=== PATIENT | female | born 1990 | race African-American/Black ===

== ENCOUNTER 2021-11-04 15:26 | Inpatient (IN) | payer OTHER ==
[~2021-11-04] VITALS: Ht 157.5 cm; Wt 88.0 kg
[2021-11-04] VITALS (10 sets, daily range): BP systolic 117–143; BP diastolic 68–82
[2021-11-04] MEDS ORDERED: PRENTAB9 PO (15:54)
[2021-11-04] MEDS ORDERED: HOME MED LIST COMPLETE! XX SCH (15:55)
[2021-11-04] MEDS ORDERED: OXYTOCIN INJ 10 UNITS/ML VIAL (J2590) IV PRN (16:10)
[2021-11-04] MEDS ORDERED: TRANEXAMIC ACID INJection 1,000 MG in NS 100 ML IV PRN (16:10)
[2021-11-04] MEDS ORDERED: LR 1,000 ML IV SCH (16:10)
[2021-11-04] MEDS ORDERED: LACTATED RINGER'S 1000 ML IV ONE (16:10)
[2021-11-04] MEDS ORDERED: OXYTOCIN DRIP 30 UNITS in IV 1 EA IV PRN ×4 (16:10)
[2021-11-04] MEDS ORDERED: METHYLERGONOVINE MALEATE 0.2 MG/ML VIAL (J2210) IM PRN (16:10)
[2021-11-04 16:47] LABS: HEMATOCRIT 42.9 % (36.0-47.0); HEMOGLOBIN 14.1 g/dl (12.0-15.5); MEAN CORPUSCULAR HEMOGLOBIN 29.9 pg (27.0-33.0); MEAN CORPUSCULAR HGB CONC 32.9 g/dl (32.0-36.5); MEAN CORPUSCULAR VOLUME 90.9 fl (80.0-96.0); PLATELET COUNT, AUTOMATED 192 10^3/uL (150-450); RED BLOOD COUNT 4.72 10^6/uL (4.00-5.40); WHITE BLOOD COUNT 8.6 10^3/uL (4.0-10.0)
[2021-11-04] MEDS ORDERED: OXYTOCIN DRIP 30 UNITS in IV 1 EA IV SCH (19:10)
[2021-11-05] VITALS (42 sets, daily range): BP systolic 111–173; BP diastolic 58–95
[2021-11-05] MEDS ORDERED: FENTANYL 2MCG/ML ROPIVACAINE 0.2% IN 0.9% NACL 100ML IVBAG As Ordered ONE (01:59)
[2021-11-05] MEDS ORDERED: LR 500 ML IV PRN (05:10)
[2021-11-05] MEDS ORDERED: ONDANSETRON 4MG/2ML VIAL IV PRN (05:10)
[2021-11-05] MEDS ORDERED: NALOXONE INJ 0.4MG/1ML VIAL (J2310 PER 1MG) IV PRN (05:10)
[2021-11-05] MEDS ORDERED: diphenhydrAMINE 50MG/ML VIAL (J1200) IV PRN (05:10)
[2021-11-05] MEDS ORDERED: EPIDURAL/PCA KEYS XX PRN (05:10)
[2021-11-05] MEDS ORDERED: ePHEDrine SULFATE 25 MG/5 ML(5MG/ML) SYRINGE IVP PRN (05:10)
[2021-11-05] MEDS ORDERED: FENTANYL/ROPIVACAINE/NACL BAG 100 ML EPIDURAL SCH (05:10)
[2021-11-05 09:08] LABS: CORD GAS ABE V -1.4; CORD GAS HCO3 V 23.7 MEQ/L; CORD GAS PCO2 V 41.3 mmHg; CORD GAS PH V 7.377 UNITS; CORD GAS PO2 V 42.8 mmHg; CORD GAS SBC V 23.1 MEQ/L
[2021-11-05 09:09] LABS: CORD GAS ABE A -5.3; CORD GAS HCO3 A 23.2 MEQ/L; CORD GAS PH A 7.227 UNITS; CORD GAS SBC A 18.8 MEQ/L; CORD GAS TCO2 A 24.9 MEQ/L
[2021-11-05] MEDS ORDERED: ANUSOL HC CREAM 30GM TOP PRN (09:20)
[2021-11-05] MEDS ORDERED: OXYTOCIN INJ 10 UNITS/ML VIAL (J2590) IV ONE (09:20)
[2021-11-05] MEDS ORDERED: ACETAMINOPHEN TAB 650MG DOSE (2X325MG) PO PRN (09:20)
[2021-11-05] MEDS ORDERED: RHOGAM 300 MCG (1500 IU) INJ (J2790) IM SCH (09:20)
[2021-11-05] MEDS ORDERED: METHYLERGONOVINE MALEATE 0.2 MG TAB PO PRN (09:20)
[2021-11-05] MEDS ORDERED: DIBUCAINE 1% OINTMENT 30GM TOP PRN (09:20)
[2021-11-05] MEDS ORDERED: MOM 30ML SUSPENSION UDC PO PRN (09:20)
[2021-11-05] MEDS ORDERED: OXYTOCIN DRIP 30 UNITS in IV 1 EA IV SCH ×4 (09:20)
[2021-11-05] MEDS ORDERED: IBUPROFEN 600MG TAB PO PRN (09:20)
[2021-11-05] MEDS ORDERED: DOCUSATE SODIUM 100MG CAPSULE PO PRN (09:20)
[2021-11-05] MEDS: ACETAMINOPHEN 500 MG TAB PO PRN ×2 (10:46→16:42)
[2021-11-05 12:02] LABS: HEMATOCRIT 43.9 % (36.0-47.0); MEAN CORPUSCULAR HEMOGLOBIN 31.4 pg (27.0-33.0); MEAN CORPUSCULAR HGB CONC 34.2 g/dl (32.0-36.5); MEAN CORPUSCULAR VOLUME 91.8 fl (80.0-96.0); PLATELET COUNT, AUTOMATED 163 10^3/uL (150-450); RED BLOOD COUNT 4.78 10^6/uL (4.00-5.40)
[2021-11-05] MEDS: LR 1,000 ML IV SCH ×2 (12:24→14:42)
[2021-11-05 12:27] LABS: TOTAL PROTEIN,RANDOM URINE 34.5 MG/DL (0.0-12.0)
[2021-11-05 12:29] LABS: ALBUMIN 2.1 GM/DL (3.2-5.2); BILIRUBIN,DIRECT 0.2 MG/DL (0.0-0.2); BILIRUBIN,TOTAL 0.6 MG/DL (0.2-1.0)
[2021-11-06] MEDS: LR 1,000 ML IV SCH (01:20)
[2021-11-06 06:17] VITALS: BP 105/68
[2021-11-06 07:53] LABS: HEMATOCRIT 38.7 % (36.0-47.0); MEAN CORPUSCULAR HEMOGLOBIN 31.5 pg (27.0-33.0); MEAN CORPUSCULAR HGB CONC 33.6 g/dl (32.0-36.5); MEAN CORPUSCULAR VOLUME 93.7 fl (80.0-96.0); PLATELET COUNT, AUTOMATED 157 10^3/uL (150-450); RED BLOOD COUNT 4.13 10^6/uL (4.00-5.40); WHITE BLOOD COUNT 19.3 10^3/uL (4.0-10.0)
[2021-11-06] MEDS: PRENATAL VITAMINS CHEWABLE TABLET PO SCH (09:00)
[2021-11-06 18:00] VITALS: BP 129/71
[2021-11-07 06:00] VITALS: BP 140/84
[2021-11-07] MEDS: PRENATAL VITAMINS CHEWABLE TABLET PO SCH (08:18)
[2021-11-07] MEDS ORDERED: MEASLES,MUMPS,RUBELLA VACCINE INJ (MMR-II) (90707) SC ONE (09:00)
== END 2021-11-07 12:40 | disposition home or self-care (01) | DRG 807 ==
LOC: M LDI 15:26 → M OBS 11-05 13:29
PROVIDERS: ADMIT Obstetrics & Gynecology; ATTEND Obstetrics & Gynecology
PROC: 10E0XZZ Delivery of Products of Conception, External Approach (ICD-10-PCS; principal; 2021-11-05)
PROC: 0HQ9XZZ Repair Perineum Skin, External Approach (ICD-10-PCS; 2021-11-05)
DX: O77.0 Labor and delivery complicated by meconium in amniotic fluid (principal); Z37.0 Single live birth; Z3A.40 40 weeks gestation of pregnancy; O70.0 First degree perineal laceration during delivery; O75.89 Other specified complications of labor and delivery

== ENCOUNTER 2021-11-20 07:38 | Emergency (ER) | payer OTHER ==
[~2021-11-20 07:38] MED LIST: METHYLERGONOVINE MALEATE 0.2 MG TAB PO SCH; PRENTAB9 PO
[2021-11-20] MEDS ORDERED: NS 1,000 ML IV ONE ×2 (08:00→08:15)
[2021-11-20] MEDS ORDERED: OXYTOCIN INJ 10 UNITS/ML VIAL (J2590) IV ONE (08:15)
[2021-11-20 08:17] LABS: BASO # 0.1 10^3/uL (0.0-0.2); BASO % 0.7 % (0.0-1.0); EOS # 0.1 10^3/uL (0.0-0.5); HEMOGLOBIN 14.4 g/dl (12.0-15.5); LYMPH # 3.9 10^3/uL (1.5-5.0); LYMPH % 57.2 % (24.0-44.0); MEAN CORPUSCULAR HEMOGLOBIN 30.7 pg (27.0-33.0); MEAN CORPUSCULAR HGB CONC 33.5 g/dl (32.0-36.5); MEAN CORPUSCULAR VOLUME 91.7 fl (80.0-96.0); MONO # 0.5 10^3/uL (0.0-0.8); MONO % 7.3 % (2.0-8.0); NEUTROPHILS # 2.3 10^3/uL (1.5-8.5); NEUTROPHILS % 33.4 % (36.0-66.0); PLATELET COUNT, AUTOMATED 427 10^3/uL (150-450); RED BLOOD COUNT 4.69 10^6/uL (4.00-5.40); WHITE BLOOD COUNT 6.9 10^3/uL (4.0-10.0)
[2021-11-20] MEDS ORDERED: fentaNYL 100 MCG/2 ML INJECTION IV ONE (08:25)
[2021-11-20] MEDS ORDERED: METHYLERGONOVINE MALEATE 0.2 MG/ML VIAL (J2210) IM STA (08:29)
[2021-11-20 08:38] LABS: INR 1.05; PROTHROMBIN TIME 14.1 SECONDS (12.7-14.5)
[2021-11-20 08:40] LABS: PARTIAL THROMBOPLASTIN TIME 34.3 SECONDS (25.9-37.0)
[2021-11-20 08:56] LABS: RSV AMPLIFICATION NEGATIVE (NEGATIVE)
[2021-11-20 12:44] LABS: HEMATOCRIT 39.2 % (36.0-47.0)
[2021-11-20 14:30] VITALS: BP 123/81
[2021-11-20] MEDS ORDERED: METHYLERGONOVINE MALEATE 0.2 MG TAB PO ONE (14:35)
== END 2021-11-20 15:09 | disposition home or self-care (01) ==
LOC: M ED 07:38
DX: O72.1 Other immediate postpartum hemorrhage (principal); Z79.899 Other long term (current) drug therapy
CPT/HCPCS: 76856; 80047; 85014; 85018; 85025; 85384; 85610; 85730; 86850; 86900; 86901; 86920; 87631; 93005; 93041; 94760; 96361; 96372; 96374; 96375; 99285; J2210; J2590; J3010

== ENCOUNTER 2022-02-24 20:55 | Emergency (ER) | payer OTHER ==
[~2022-02-24] VITALS: Ht 167.6 cm; Wt 78.4 kg
[~2022-02-24 20:55] MED LIST changes: -METHYLERGONOVINE MALEATE 0.2 MG TAB PO SCH
[2022-02-24 20:57] VITALS: BP 133/80
== END 2022-02-25 03:23 | disposition left against medical advice (07) ==
LOC: M ED 20:55
DX: Z53.21 Procedure and treatment not carried out due to patient leaving prior to being seen by health care provider (principal)